=== PATIENT | male | born 1965 | race Caucasian/White ===

== ENCOUNTER 2022-06-17 21:46 | Emergency (ER) | payer SELFPAY ==
--- NOTE | 2022-06-17 21:50 | NUR ---
Patient refused to be checked by security and being argumentative with staff
--- NOTE | 2022-06-17 21:57 | NUR ---
Patient refused to sign AMA form
--- NOTE | 2022-06-17 22:01 | NUR ---
Patient does not wish to proceed with medical care recommended by Dr. Belcher. Patient given information related to possible complications, up to and including , which could occur as a result of leaving the hospital at this time. Patient verbalizes understanding of risks involved due to leaving against medical advice. Patient has signed AMA form. Patient walked outside ER
== END 2022-06-17 22:00 | disposition left against medical advice (07) ==
LOC: ER 21:46
DX: Z53.21 Procedure and treatment not carried out due to patient leaving prior to being seen by health care provider (principal)

== ENCOUNTER 2022-08-13 19:13 | Emergency (ER) | payer MEDICAID ==
[~2022-08-13] VITALS: Ht 180.3 cm; Wt 86.2 kg
--- NOTE | 2022-08-13 19:30 | NUR ---
Dr. Hernandez seen the patient at bedside.
--- NOTE | 2022-08-13 20:10 | NUR ---
Patient went to CT.
[2022-08-13 20:19] LABS: HEMATOCRIT 42.6 % (36.7-47.1); MEAN CORPUSCULAR HEMOGLOBIN 27.5 uug (23.8-33.4); MEAN CORPUSCULAR VOLUME 83.8 fL (73.0-96.2); PLATELET COUNT (AUTO) 330 K/uL (152-348)
[2022-08-13 20:20] LABS: CARBON DIOXIDE 30 mmol/L (21-32); CHLORIDE 101 mmol/L (98-107); GLUCOSE 86 mg/dL (74-106); POTASSIUM 3.9 mmol/L (3.5-5.1); UREA NITROGEN, BLOOD 17 mg/dL (7-18)
--- NOTE | 2022-08-13 20:20 | NUR ---
Patient came back from [place]. Aleshia Baldwin/Richard Neely.
[2022-08-13 20:29] LABS: ALANINE AMINOTRANSFERASE 33 U/L (16-63); ALKALINE PHOSPHATASE 112 U/L (50-136); ASPARTATE AMINOTRANSFERASE 24 U/L (15-37); BILIRUBIN,DIRECT 0.1 mg/dL (0.0-0.2); BILIRUBIN,TOTAL 0.6 mg/dL (0.2-1.0); TOTAL PROTEIN, SERUM 9.9 g/dL (6.4-8.2)
[2022-08-13] MEDS ORDERED: ACETAMINOPHEN ES 500 MG TABLET ONE (21:37)
[2022-08-13] MEDS ORDERED: ACETAMINOPHEN ES 500 MG TABLET PO ONE (21:45)
--- NOTE | 2022-08-13 21:45 | NUR ---
CT Clear, gave food as Dr. recommended. Patient is eating well at bedsite. Patient last reported meal was in the morning around 0800, and last drank juice around 1400. Aleshia Baldwin/Richard Neely.
--- NOTE | 2022-08-13 21:56 | NUR ---
Patient discharged to home in stable condition. Written and verbal after care instructions given. Patient verbalizes understanding of instructions. Stressed follow up or return to ER for worsening s/s. IV was removed. VS stable. No acute distress. All belongings were taken. Provided with copies of lab and imaging reports. Chace./Emmanuel.
[2022-08-13 21:57] VITALS: BP 145/96
== END 2022-08-13 21:59 | disposition home or self-care (01) ==
LOC: ER 19:15
DX: R55 Syncope and collapse (principal); R53.1 Weakness; I10 Essential (primary) hypertension; Z88.5 Allergy status to narcotic agent; Z88.0 Allergy status to penicillin; Z85.038 Personal history of other malignant neoplasm of large intestine; Z86.73 Personal history of transient ischemic attack (TIA), and cerebral infarction without residual deficits; Z86.718 Personal history of other venous thrombosis and embolism
CPT/HCPCS: 36415; 70450; 71045; 84484; 85025; 93005; A4663; A9150

== ENCOUNTER 2022-09-26 20:28 | Emergency (ER) | payer SELFPAY ==
--- NOTE | 2022-09-26 22:20 | NUR ---
PATIENT WAS JUST CALLED AT THIS TIME TO BE TRIAGED DUE TO SEVERAL EMERGENCY OCURRING IN THE ER.
--- NOTE | 2022-09-26 22:50 | NUR ---
PATIENT WAS CALLED TO BE TRIAGED BUT WAS NOT PRESENT IN THE WAITING ROOM OR OUTSIDE OF ER.
--- NOTE | 2022-09-26 23:30 | NUR ---
PATIENT WAS CALLED TO BE TRIAGED BUT WAS NOT PRESENT IN THE WAITING ROOM OR OUTSIDE OF ER. PATIENT WAS NOT TRIAGED OR SEEN BY [facility]MD.
== END 2022-09-26 23:30 | disposition left against medical advice (07) ==
LOC: ER 20:32
DX: Z53.21 Procedure and treatment not carried out due to patient leaving prior to being seen by health care provider (principal)

== ENCOUNTER 2023-02-20 18:51 | Inpatient (IN) | payer MEDICAID ==
[~2023-02-20] VITALS: Ht 180.3 cm; Wt 97.5 kg
[2023-02-20] MEDS ORDERED: IV NORMAL SALINE 500 ML BAG IV ONE (20:30)
[2023-02-20] MEDS ORDERED: methylPREDNISolone SOD SUCC 125 MG/2 ML VIAL IV ONE (20:45)
[2023-02-20 20:52] LABS: HEMATOCRIT 36.6 % (36.7-47.1); MEAN CORPUSCULAR HEMOGLOBIN 25.4 uug (23.8-33.4); MEAN CORPUSCULAR VOLUME 78.3 fL (73.0-96.2); PLATELET COUNT (AUTO) 360 K/uL (152-348)
[2023-02-20] MEDS ORDERED: methylPREDNISolone SOD SUCC 125 MG/2 ML VIAL ONE (21:11)
[2023-02-20 21:27] LABS: CARBON DIOXIDE 25 mmol/L (21-32); CHLORIDE 104 mmol/L (98-107); CREATININE 0.8 mg/dL (0.6-1.3); GLUCOSE 117 mg/dL (74-106); POTASSIUM 4.1 mmol/L (3.5-5.1); UREA NITROGEN, BLOOD 13 mg/dL (7-18)
[2023-02-20 21:36] LABS: ALANINE AMINOTRANSFERASE 27 U/L (16-63); ALKALINE PHOSPHATASE 107 U/L (50-136); ASPARTATE AMINOTRANSFERASE 12 U/L (15-37); BILIRUBIN,DIRECT 0.1 mg/dL (0.0-0.2); BILIRUBIN,TOTAL 0.1 mg/dL (0.2-1.0); TOTAL PROTEIN, SERUM 7.8 g/dL (6.4-8.2)
[2023-02-20] MEDS ORDERED: LOSA100T31 PO (23:25)
[2023-02-20] MEDS ORDERED: ENOX40DI SQ (23:25)
[2023-02-20] MEDS ORDERED: DOXY100T2 PO (23:25)
[2023-02-20] MEDS ORDERED: TAMS-3 PO (23:25)
[2023-02-20] MEDS ORDERED: AMLO10TA59 PO (23:25)
[2023-02-21] MEDS ORDERED: MAGNESIUM HYDROXIDE 30 ML LIQUID UDC PO PRN (00:30)
[2023-02-21] MEDS ORDERED: ACETAMINOPHEN 325 MG TABLET PO PRN (00:30)
[2023-02-21] MEDS ORDERED: REMEDY ESSENTIAL ZINC PASTE 113 GM TP PRN (00:30)
[2023-02-21] MEDS ORDERED: ONDANSETRON 4 MG/2 ML VIAL IV PRN (00:30)
[2023-02-21 01:30] VITALS: BP 170/102
[2023-02-21] MEDS: IV NS 1000 ML 1,000 ML IV PRN ×2 (01:36→01:54)
[2023-02-21] MEDS ORDERED: LOSARTAN POTASSIUM 50 MG TABLET PO ONE (01:53)
[2023-02-21] MEDS: methylPREDNISolone SOD SUCC 40 MG/ML VIAL IV SCH ×3 (05:52→22:11)
[2023-02-21] MEDS: AMLODIPINE 10 MG TABLET PO SCH (09:00)
[2023-02-21] MEDS: METOPROLOL TARTRATE 25 MG TABLET PO SCH ×2 (09:30→20:33)
[2023-02-21 20:00] VITALS: BP 152/92
[2023-02-21] MEDS ORDERED: PANTOPRAZOLE SODIUM 40 MG TABLET.DR PO ONE (20:15)
[2023-02-21] MEDS: TAMSULOSIN HCL 0.4 MG CAP.SR.24H PO SCH (20:25)
[2023-02-21] MEDS: LOSARTAN POTASSIUM 50 MG TABLET PO SCH (20:28)
[2023-02-22] MEDS: PANTOPRAZOLE SODIUM 40 MG TABLET.DR PO SCH (06:04)
[2023-02-22] MEDS: methylPREDNISolone SOD SUCC 40 MG/ML VIAL IV SCH ×3 (06:04→22:29)
[2023-02-22 08:02] LABS: HEMATOCRIT 36.8 % (36.7-47.1); MEAN CORPUSCULAR HEMOGLOBIN 25.6 uug (23.8-33.4); MEAN CORPUSCULAR VOLUME 78.2 fL (73.0-96.2); PLATELET COUNT (AUTO) 419 K/uL (152-348)
[2023-02-22 08:14] LABS: THYROID STIMULATING HORMONE 0.374 mIU/mL (0.358-3.740)
[2023-02-22 08:18] LABS: BILIRUBIN,TOTAL 0.1 mg/dL (0.2-1.0); CREATININE 0.9 mg/dL (0.6-1.3); PHOSPHOROUS 3.8 mg/dL (2.5-4.9); POTASSIUM 4.2 mmol/L (3.5-5.1); TOTAL PROTEIN, SERUM 7.8 g/dL (6.4-8.2)
[2023-02-22] MEDS: METOPROLOL TARTRATE 25 MG TABLET PO SCH ×3 (09:00→21:00)
[2023-02-22] MEDS: AMLODIPINE 10 MG TABLET PO SCH (09:51)
[2023-02-22 16:00] VITALS: BP 154/103
[2023-02-22 20:00] VITALS: BP 134/92
[2023-02-22] MEDS ORDERED: ATORVASTATIN 20 MG TABLET PO SCH (21:00)
[2023-02-22] MEDS: TAMSULOSIN HCL 0.4 MG CAP.SR.24H PO SCH (21:00)
[2023-02-22 21:08] VITALS: BP 134/92
[2023-02-22] MEDS: LOSARTAN POTASSIUM 50 MG TABLET PO SCH (21:08)
[2023-02-23] MEDS: methylPREDNISolone SOD SUCC 40 MG/ML VIAL IV SCH (06:02)
[2023-02-23] MEDS: PANTOPRAZOLE SODIUM 40 MG TABLET.DR PO SCH (06:03)
[2023-02-23] MEDS: METOPROLOL TARTRATE 25 MG TABLET PO SCH (08:13)
[2023-02-23] MEDS: AMLODIPINE 10 MG TABLET PO SCH (08:13)
== END 2023-02-23 13:00 | disposition home or self-care (01) | DRG 43 ==
LOC: ER 18:54 → MEDSURG3 02-21 00:48
PROVIDERS: ADMIT Nurse Practitioner Acute Care; ATTEND Internal Medicine
PROC: 05HC33Z Insertion of Infusion Device into Left Basilic Vein, Percutaneous Approach (ICD-10-PCS; principal; 2023-02-21)
DX: G35 Multiple sclerosis (principal); D50.9 Iron deficiency anemia, unspecified; E66.9 Obesity, unspecified; Z66 Do not resuscitate; Z91.14 Patient's other noncompliance with medication regimen; Z68.30 Body mass index [BMI] 30.0-30.9, adult; I10 Essential (primary) hypertension; Z88.5 Allergy status to narcotic agent; I45.6 Pre-excitation syndrome; R53.1 Weakness; F99 Mental disorder, not otherwise specified; Z86.79 Personal history of other diseases of the circulatory system; Z86.73 Personal history of transient ischemic attack (TIA), and cerebral infarction without residual deficits; Z88.8 Allergy status to other drugs, medicaments and biological substances; Z85.038 Personal history of other malignant neoplasm of large intestine; Z91.030 Bee allergy status; Z88.0 Allergy status to penicillin; Z91.018 Allergy to other foods; Z86.711 Personal history of pulmonary embolism
CPT/HCPCS: 36415; 70450; 83735; 84100; 84443; 84484; 85025; 93005; A4663; G0378; J2920; J2930; J7040

== ENCOUNTER 2024-07-18 23:45 | Emergency (ER) | payer MEDICAID ==
[~2024-07-18] VITALS: Ht 180.3 cm; Wt 0.9 kg
[~2024-07-18 23:45] MED LIST: AMLO10TA59 PO; LOSA100T31 PO; TAMS-3 PO
[2024-07-19 01:26] LABS: BASOPHILS % (AUTO) 0.4 % (0.0-2.0); EOSINOPHILS % (AUTO) 0.9 % (0.0-7.0); HEMATOCRIT 38.8 % (36.7-47.1); HEMOGLOBIN 12.4 g/dL (12.5-16.3); LYMPHOCYTES # (AUTO) 1.6 K/uL (0.8-4.8); LYMPHOCYTES % (AUTO) 29.6 % (20.5-51.5); MEAN CORPUSCULAR HEMOGLOBIN 25.3 uug (23.8-33.4); MEAN CORPUSCULAR HGB CONC 32 g/dL (32.5-36.3); MEAN CORPUSCULAR VOLUME 79.1 fL (73.0-96.2); MONOCYTES # (AUTO) 0.8 K/uL (0.1-1.30); MONOCYTES % (AUTO) 14.2 % (0.0-11.0); NEUTROPHILS % (AUTO) 54.9 % (38.5-71.5); PLATELET COUNT (AUTO) 294 K/uL (152-348); RED CELL DISTRIBUTION WIDTH 18.2 % (12.1-16.2); WHITE BLOOD COUNT (AUTO) 5.4 K/uL (3.6-10.2)
[2024-07-19 01:34] LABS: CREATININE 1.1 mg/dL (0.6-1.3); POTASSIUM 3.8 mmol/L (3.5-5.1)
[2024-07-19 01:35] LABS: DIFFERENTIAL COMMENT 1
[2024-07-19 01:49] LABS: ALBUMIN 3.9 g/dL (3.4-5.0); BILIRUBIN,TOTAL 0.5 mg/dL (0.2-1.0); MAGNESIUM 2.4 mg/dL (1.8-2.4); TOTAL PROTEIN, SERUM 8.3 g/dL (6.4-8.2)
[2024-07-19 02:54] VITALS: BP 151/97; TEMP 98.6; O2SAT 98
== END 2024-07-19 02:55 | disposition home or self-care (01) ==
LOC: ER 23:52
DX: I49.9 Cardiac arrhythmia, unspecified (principal); R55 Syncope and collapse; I48.91 Unspecified atrial fibrillation; Z98.890 Other specified postprocedural states; Z79.899 Other long term (current) drug therapy; Z60.2 Problems related to living alone; Z88.1 Allergy status to other antibiotic agents; Z88.5 Allergy status to narcotic agent
CPT/HCPCS: 36415; 71045; 83735; 84484; 85025; 93005; A4606; A4663

== ENCOUNTER 2024-09-27 22:42 | Emergency (ER) | payer MEDICAID ==
[~2024-09-27] VITALS: Ht 180.3 cm; Wt 98.9 kg
[2024-09-27] MEDS: IV NORMAL SALINE 500 ML BAG IV ONE (23:31)
[2024-09-27] MEDS ORDERED: MECLIZINE HCL 25 MG TABLET ONE (23:40)
[2024-09-27] MEDS: MECLIZINE HCL 25 MG TABLET PO ONE (23:42)
[2024-09-27 23:45] LABS: BASOPHILS % (AUTO) 0.9 % (0.0-2.0); EOSINOPHILS # (AUTO) 0.1 K/uL (0.0-0.7); EOSINOPHILS % (AUTO) 2.5 % (0.0-7.0); HEMATOCRIT 32.8 % (36.7-47.1); HEMOGLOBIN 10.7 g/dL (12.5-16.3); LYMPHOCYTES # (AUTO) 1.3 K/uL (0.8-4.8); MEAN CORPUSCULAR HEMOGLOBIN 26.3 uug (23.8-33.4); MEAN CORPUSCULAR HGB CONC 33 g/dL (32.5-36.3); MEAN CORPUSCULAR VOLUME 80.4 fL (73.0-96.2); MONOCYTES # (AUTO) 0.5 K/uL (0.1-1.30); MONOCYTES % (AUTO) 9.2 % (0.0-11.0); NEUTROPHILS # (AUTO) 3.4 K/uL (1.8-8.9); NEUTROPHILS % (AUTO) 62.4 % (38.5-71.5); PLATELET COUNT (AUTO) 272 K/uL (152-348); RED BLOOD CELL COUNT(AUTO) 4.07 MIL/uL (4.06-5.63); RED CELL DISTRIBUTION WIDTH 18.9 % (12.1-16.2); WHITE BLOOD COUNT (AUTO) 5.4 K/uL (3.6-10.2)
[2024-09-28 00:05] LABS: ALBUMIN 3.7 g/dL (3.4-5.0); BILIRUBIN,TOTAL 0.3 mg/dL (0.2-1.0); CALCIUM 8.9 mg/dL (8.5-10.1); MAGNESIUM 2.1 mg/dL (1.8-2.4); POTASSIUM 3.6 mmol/L (3.5-5.1); TOTAL PROTEIN, SERUM 8.1 g/dL (6.4-8.2)
[2024-09-28 00:08] LABS: C-REACTIVE PROTEIN 2.47 mg/dL (0.00-0.30)
[2024-09-28 00:09] LABS: THYROID STIMULATING HORMONE 1.948 mIU/mL (0.358-3.740)
[2024-09-28] MEDS ORDERED: DIAZEPAM 2 MG TABLET ONE (00:50)
[2024-09-28] MEDS: DIAZEPAM 2 MG TABLET PO ONE (00:53)
[2024-09-28 01:09] VITALS: BP 133/79; TEMP 98; O2SAT 99
== END 2024-09-28 01:10 | disposition home or self-care (01) ==
LOC: ER 22:42
DX: R42 Dizziness and giddiness (principal); I48.91 Unspecified atrial fibrillation; R55 Syncope and collapse; Z86.73 Personal history of transient ischemic attack (TIA), and cerebral infarction without residual deficits; Z88.0 Allergy status to penicillin; Z88.1 Allergy status to other antibiotic agents; Z88.2 Allergy status to sulfonamides; Z88.5 Allergy status to narcotic agent; Z88.8 Allergy status to other drugs, medicaments and biological substances; Z91.030 Bee allergy status; Z87.19 Personal history of other diseases of the digestive system; Z85.038 Personal history of other malignant neoplasm of large intestine
CPT/HCPCS: 36415; 70450; 71045; 83735; 84443; 85025; 86140; A4606; A4663; J8597